=== PATIENT | female | born 1935 | race Caucasian/White ===

== ENCOUNTER → 2020-09-03 | Outpatient (REF) | payer MEDICARE, BC ==
[2020-09-03 18:21] LABS: MAGNESIUM LEVEL 1.8 MG/DL (1.8-2.4); TOTAL PROTEIN 7.7 GM/DL (6.4-8.2)
[2020-09-05 10:49] LABS: ALBUMIN % 60.3 % (55.8-66.1); ALPHA-1-GLOBULIN % 4.3 % (2.9-4.9); ALPHA-2-GLOBULINS % 11.6 % (7.1-11.8); BETA-1-GLOBULINS % 5.5 % (4.7-7.2)
[2020-09-05 10:50] LABS: ALBUMIN 4.64 GM/DL (3.29-5.55); ALPHA-1-GLOBULINS 0.33 GM/DL (0.17-0.41); ALPHA-2-GLOBULINS 0.89 GM/DL (0.42-0.99); BETA-1-GLOBULINS 0.42 GM/DL (0.28-0.60); BETA-2-GLOBULINS 0.37 GM/DL (0.19-0.55); BETA-2-GLOBULINS % 4.8 % (3.2-6.5); GAMMA GLOBULIN % 13.5 % (11.1-18.8); GAMMA GLOBULINS 1.04 GM/DL (0.65-1.58)
[2020-09-05 17:12] LABS: FREE KAPPA LIGHT CHAINS SERUM 46.1 mg/L (3.3-19.4); FREE LAMBDA LIGHT CHAINS SERUM 23.6 mg/L (5.7-26.3); KAPPA/LAMBDA RATIO SERUM 1.95 (0.26-1.65)
== END ==
LOC: M LAB REF 17:36
PROVIDERS: ATTEND Internal Medicine Nephrology
DX: E83.52 Hypercalcemia (principal); N18.4 Chronic kidney disease, stage 4 (severe)

== ENCOUNTER → 2021-03-10 | Outpatient (REF) | payer MEDICARE, BC | LOC: M LAB REF 17:04 | PROVIDERS: ATTEND Nurse Practitioner Family | DX: E83.42 Hypomagnesemia (principal) ==

== ENCOUNTER 2022-09-18 21:15 | Emergency (ER) | payer MEDICARE, BC ==
[~2022-09-18] VITALS: Ht 162.6 cm; Wt 80.0 kg
[2022-09-18] VITALS (7 sets, daily range): BP systolic 115–158; BP diastolic 72–82; TEMP 97.9; O2SAT 93–96
[2022-09-18 21:53] LABS: BASO # 0.1 10^3/uL (0.0-0.2); BASO % 1.3 % (0.0-1.0); EOS # 0.1 10^3/uL (0.0-0.5); HEMOGLOBIN 11.8 g/dl (12.0-15.5); LYMPH # 1.7 10^3/uL (1.5-5.0); LYMPH % 35.7 % (24.0-44.0); MEAN CORPUSCULAR HEMOGLOBIN 32.4 pg (27.0-33.0); MEAN CORPUSCULAR HGB CONC 31.9 g/dl (32.0-36.5); MEAN CORPUSCULAR VOLUME 101.6 fl (80.0-96.0); MONO # 0.9 10^3/uL (0.0-0.8); MONO % 19.5 % (2.0-8.0); NEUTROPHILS # 1.9 10^3/uL (1.5-8.5); NEUTROPHILS % 40.3 % (36.0-66.0); PLATELET COUNT, AUTOMATED 210 10^3/uL (150-450); RED BLOOD COUNT 3.64 10^6/uL (4.00-5.40); WHITE BLOOD COUNT 4.7 10^3/uL (4.0-10.0)
[2022-09-18 22:04] LABS: INR 3.08
[2022-09-18 22:05] LABS: PARTIAL THROMBOPLASTIN TIME 38.5 SECONDS (24.8-34.2)
[2022-09-18] MEDS ORDERED: ISOVUE-370 76% 100ML VIAL As Ordered ONE (22:10)
[2022-09-18 22:16] LABS: CK-MB VALUE MASS 1.2 NG/ML (<3.6)
[2022-09-18 22:27] LABS: MB/CK RELATIVE INDEX 1.14 (< OR =4)
[2022-09-19 00:45] VITALS: BP 152/71; TEMP 97.5; O2SAT 95
== END 2022-09-19 01:06 | disposition short-term general hospital (02) ==
LOC: EDBD 21:15 → M ED 21:15
DX: I63.9 Cerebral infarction, unspecified (principal); I48.91 Unspecified atrial fibrillation; I44.4 Left anterior fascicular block; I45.81 Long QT syndrome; N18.9 Chronic kidney disease, unspecified; Z86.718 Personal history of other venous thrombosis and embolism; Z86.79 Personal history of other diseases of the circulatory system; Z79.01 Long term (current) use of anticoagulants; Z88.8 Allergy status to other drugs, medicaments and biological substances
CPT/HCPCS: 36415; 70450; 70496; 70498; 71045; 80047; 82550; 82553; 84484; 84702; 85025; 85610; 85730; 87635; 93005; 93041; 94760; 99285; Q9967